=== PATIENT | male | born 1980 | race Caucasian/White ===

== ENCOUNTER 2017-02-06 03:38 | Emergency (ER) | payer BC, OTHER ==
[~2017-02-06] VITALS: Ht 170.2 cm; Wt 63.5 kg
[2017-02-06 03:41] VITALS: BP 145/84
== END 2017-02-06 07:30 | disposition left against medical advice (07) ==
LOC: M ED 06:58
DX: L98.9 Disorder of the skin and subcutaneous tissue, unspecified (principal); Z53.21 Procedure and treatment not carried out due to patient leaving prior to being seen by health care provider

== ENCOUNTER 2018-01-05 03:55 | Emergency (ER) | payer BC, OTHER ==
[2018-01-05] MEDS: KETOROLAC TROMETHAMINE 10 MG TAB PO (04:50)
[2018-01-05] MEDS: BACTRIM 160MG/800MG DS TAB PO (04:50)
== END 2018-01-05 04:54 | disposition home or self-care (01) ==
LOC: M ED 03:55
DX: L03.211 Cellulitis of face (principal); B95.62 Methicillin resistant Staphylococcus aureus infection as the cause of diseases classified elsewhere; F17.210 Nicotine dependence, cigarettes, uncomplicated
CPT/HCPCS: 87186

== ENCOUNTER 2018-06-13 12:59 | Emergency (ER) | payer OTHER, BC ==
[2018-06-13] MEDS: ONDANSETRON 4MG/2ML VIAL (J2405) IV (14:37)
[2018-06-13] MEDS: MORPHINE 4 MG/ML 1ML VIAL/SYRINGE (J2270) IV ×2 (14:38→15:36)
[2018-06-13 14:51] LABS: BASO # 0.1 10^3/uL (0.0-0.2); BASO % 0.3 % (0.0-1.0); EOS # 0.2 10^3/uL (0.0-0.50); EOS % 1.1 % (0.0-3.0); HEMOGLOBIN 14.5 g/dl (13.5-17.5); IMMATURE GRANULOCYTE % 0.5 % (0-3.0); LYMPH # 1.2 10^3/uL (1.5-4.5); MEAN CORPUSCULAR HEMOGLOBIN 33.4 pg (27.0-33.0); MEAN CORPUSCULAR HGB CONC 35.4 g/dl (32.0-36.5); MEAN CORPUSCULAR VOLUME 94.5 fl (80.0-96.0); MONO # 1.3 10^3/uL (0.0-0.8); MONO % 8.8 % (0.0-5.0); NEUTROPHILS # 11.9 10^3/uL (1.8-7.7); NEUTROPHILS % 81.3 % (36.0-66.0); PLATELET COUNT, AUTOMATED 204 10^3/uL (150-450); RED BLOOD COUNT 4.34 10^6/uL (4.30-6.10); RED CELL DISTRIBUTION WIDTH 11.6 % (11.5-14.5); WHITE BLOOD COUNT 14.6 10^3/uL (4.0-10.0)
== END 2018-06-13 16:05 | disposition home or self-care (01) ==
LOC: M ED 12:59
DX: S62.353A Nondisplaced fracture of shaft of third metacarpal bone, left hand, initial encounter for closed fracture (principal); S62.355A Nondisplaced fracture of shaft of fourth metacarpal bone, left hand, initial encounter for closed fracture; V47.5XXA Car driver injured in collision with fixed or stationary object in traffic accident, initial encounter; Y92.410 Unspecified street and highway as the place of occurrence of the external cause; R42 Dizziness and giddiness
CPT/HCPCS: J2270

== ENCOUNTER → 2018-08-10 | Outpatient (REF) | payer OTHER, BC ==
[2018-08-10 13:56] LABS: HEMATOCRIT 45.5 % (42.0-52.0); HEMOGLOBIN 15.3 g/dl (13.5-17.5); RED BLOOD COUNT 4.66 10^6/uL (4.30-6.10); WHITE BLOOD COUNT 5.6 10^3/uL (4.0-10.0)
[2018-08-10 13:57] LABS: BASO # 0.1 10^3/uL (0.0-0.2); BASO % 1.4 % (0.0-1.0); EOS # 0.4 10^3/uL (0.0-0.50); EOS % 6.8 % (0.0-3.0); IMMATURE GRANULOCYTE % 0.4 % (0-3.0); LYMPH # 1.9 10^3/uL (1.5-4.5); LYMPH % 34.6 % (24.0-44.0); MEAN CORPUSCULAR HEMOGLOBIN 32.8 pg (27.0-33.0); MEAN CORPUSCULAR HGB CONC 33.6 g/dl (32.0-36.5); MEAN CORPUSCULAR VOLUME 97.6 fl (80.0-96.0); MONO # 0.5 10^3/uL (0.0-0.8); MONO % 9.7 % (0.0-5.0); NEUTROPHILS # 2.6 10^3/uL (1.8-7.7); NEUTROPHILS % 47.1 % (36.0-66.0); PLATELET COUNT, AUTOMATED 251 10^3/uL (150-450); RED CELL DISTRIBUTION WIDTH 11.7 % (11.5-14.5)
[2018-08-10 14:17] LABS: ALBUMIN 4.1 GM/DL (3.2-5.2); ALBUMIN/GLOBULIN RATIO 1.14 (1.00-1.93); ALKALINE PHOSPHATASE 93 U/L (45-117); ALT/SGPT 24 U/L (12-78); ANION GAP 7 MEQ/L (8-16); AST/SGOT 17 U/L (7-37); BILIRUBIN,TOTAL 0.3 MG/DL (0.2-1.0); BLOOD UREA NITROGEN 15 MG/DL (7-18); CALCIUM LEVEL 9.2 MG/DL (8.5-10.1); CARBON DIOXIDE LEVEL 29 MEQ/L (21-32); CHLORIDE LEVEL 105 MEQ/L (98-107); CREATININE FOR GFR 0.95 MG/DL (0.70-1.30); GLOMERULAR FILTRATION RATE > 60.0 (>60); GLUCOSE, FASTING 55 MG/DL (70-100); POTASSIUM SERUM 4.6 MEQ/L (3.5-5.1); RHEUMATOID FACTOR QUANT 11.7 IU/ML (<15.0); SODIUM LEVEL 141 MEQ/L (136-145); TOTAL PROTEIN 7.7 GM/DL (6.4-8.2)
[2018-08-10 14:39] LABS: TOTAL 25(OH) VITAMIN D 29.6 NG/ML (30.0-100.0)
[2018-08-10 14:51] LABS: ERYTHROCYTE SEDIMENTATION RATE 6 mm/hr (0-15)
[2018-08-11 14:14] LABS: ANTINUCLEAR ANTIBODIES DIRECT Negative (Negative)
== END ==
LOC: M LABNEURO 09:13
DX: R55 Syncope and collapse (principal); R51 Headache

== ENCOUNTER → 2021-02-17 | Outpatient (CLI) | payer BC, OTHER ==
[~2021-02-17] MED LIST: BACT800T5 PO; BUDE10.2 INH; IBUP-1022 PO; KETO10TAB PO; MECL1TAB31 PO; PERC5TAB12 PO; SOMA350T PO; TAMS1CAP17 PO; TOBRSUS8 OD; VALA1TAB5
--- NOTE | 2021-02-17 08:34 | PFTRPT ---
Height: 67.00 Inches Weight: 155.00 Lbs BSA: 1.81 Diagnosis: R06.00 DATE: 02/17/2021 ORDERING PHYSICIAN: GABRIEL Frey Pre and post bronchodilator studies have excellent technical quality. Forced vital capacity is reduced. FEV1 out of proportion. Obstructive index is therefore reduced. Expiratory limit of the flow-volume loop consistent with significant flow rate limitation. Very favorable bronchodilator response is identified. Total lung capacity is normal. Residual volume does suggest a degree of air trapping. Diffusing capacity although reduced is appropriate for alveolar volume. Hemoglobin is acceptable at 16.2. Airway resistance and conductance are normal. IMPRESSION: Moderate obstructive ventilatory impairment with underlying air trapping and favorable bronchodilator response. Please correlate clinically. MTDD
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
== END ==
LOC: M CARPUL 08:01
PROVIDERS: ATTEND Physician Assistant
DX: R06.00 Dyspnea, unspecified (principal)

== ENCOUNTER 2021-02-18 17:25 | Emergency (ER) | payer OTHER, BC ==
[~2021-02-18] VITALS: Ht 170.2 cm; Wt 71.7 kg
[~2021-02-18 17:25] MED LIST changes: -BUDE10.2 INH; -IBUP-1022 PO; -SOMA350T PO; -TAMS1CAP17 PO; -TOBRSUS8 OD
[2021-02-18 17:26] VITALS: BP 158/94
[2021-02-18] MEDS ORDERED: TOBRSUS8 OD (18:24)
[2021-02-18] MEDS ORDERED: BUDE10.2 INH (18:24)
[2021-02-18] MEDS ORDERED: TAMS1CAP17 PO (18:24)
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
[2021-02-18] MEDS ORDERED: BOOSTRIX/ADACEL VACCINE (DIPHTH/PERTUSS/ACELL/TETANUS) 0.5ML SYR IM ONE (19:25)
[2021-02-18] MEDS ORDERED: IBUPROFEN 600MG TAB PO ONE (19:25)
[2021-02-18] MEDS ORDERED: ISOVUE-370 76% 100ML VIAL As Ordered ONE (19:31)
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
[2021-02-18] MEDS ORDERED: NORCO 5/325MG TABLET (BULK FOR ED) PO ONE (22:10)
[2021-02-18] MEDS ORDERED: IBUP-1022 PO (22:11)
[2021-02-18] MEDS ORDERED: SOMA350T PO (22:11)
== END 2021-02-18 22:30 | disposition home or self-care (01) ==
LOC: M ED 17:25
DX: S00.01XA Abrasion of scalp, initial encounter (principal); T14.8XXA Other injury of unspecified body region, initial encounter; V47.5XXA Car driver injured in collision with fixed or stationary object in traffic accident, initial encounter; Y92.9 Unspecified place or not applicable; Y93.9 Activity, unspecified; Y99.9 Unspecified external cause status
CPT/HCPCS: 70450; 71260; 72125; 73564; 73660; 90471; 90715; 99284; Q9967

== ENCOUNTER → 2021-04-01 | Outpatient (CLI) | payer BC, OTHER ==
[~2021-04-01] MED LIST changes: +BUDE10.2 INH; +IBUP-1022 PO; +SOMA350T PO; +TAMS1CAP17 PO; +TOBRSUS8 OD
[2021-04-01 17:14] LABS: BASO # 0.1 10^3/uL (0.0-0.2); BASO % 1.4 % (0.0-1.0); EOS # 0.2 10^3/uL (0.0-0.5); EOS % 2.8 % (0.0-3.0); HEMATOCRIT 45.4 % (42.0-52.0); HEMOGLOBIN 15.4 g/dl (13.5-17.5); LYMPH # 2.3 10^3/uL (1.5-5.0); MEAN CORPUSCULAR HEMOGLOBIN 32.6 pg (27.0-33.0); MEAN CORPUSCULAR HGB CONC 33.9 g/dl (32.0-36.5); MONO # 0.5 10^3/uL (0.0-0.8); MONO % 9.2 % (2.0-8.0); NEUTROPHILS # 2.6 10^3/uL (1.5-8.5); NEUTROPHILS % 45.2 % (36.0-66.0); PLATELET COUNT, AUTOMATED 251 10^3/uL (150-450); RED BLOOD COUNT 4.73 10^6/uL (4.30-6.10); WHITE BLOOD COUNT 5.6 10^3/uL (4.0-10.0)
== END ==
LOC: M LAB 16:11
PROVIDERS: ATTEND Physician Assistant
DX: J45.40 Moderate persistent asthma, uncomplicated (principal)

== ENCOUNTER → 2022-04-16 | Outpatient (CLI) | payer OTHER ==
[2022-04-16 14:55] LABS: BASO # 0.1 10^3/uL (0.0-0.2); BASO % 1.2 % (0.0-1.0); EOS # 0.2 10^3/uL (0.0-0.5); EOS % 3.3 % (0.0-3.0); HEMATOCRIT 44.9 % (42.0-52.0); HEMOGLOBIN 15.5 g/dl (13.5-17.5); LYMPH # 2.1 10^3/uL (1.5-5.0); LYMPH % 36.6 % (24.0-44.0); MEAN CORPUSCULAR HEMOGLOBIN 32.7 pg (27.0-33.0); MEAN CORPUSCULAR HGB CONC 34.5 g/dl (32.0-36.5); MEAN CORPUSCULAR VOLUME 94.7 fl (80.0-96.0); MONO # 0.7 10^3/uL (0.0-0.8); MONO % 11.7 % (2.0-8.0); NEUTROPHILS # 2.7 10^3/uL (1.5-8.5); PLATELET COUNT, AUTOMATED 248 10^3/uL (150-450); RED BLOOD COUNT 4.74 10^6/uL (4.30-6.10); WHITE BLOOD COUNT 5.8 10^3/uL (4.0-10.0)
== END ==
LOC: M LAB 14:10
PROVIDERS: ATTEND Physician Assistant
DX: J45.40 Moderate persistent asthma, uncomplicated (principal)

== ENCOUNTER → 2023-11-18 | Outpatient (CLI) | payer OTHER ==
[~2023-11-18] MED LIST changes: +MECL-209 PO; -MECL1TAB31 PO
== END ==
LOC: M RAD 08:33
PROVIDERS: ATTEND Family Medicine
DX: J45.40 Moderate persistent asthma, uncomplicated (principal); J84.10 Pulmonary fibrosis, unspecified